=== PATIENT | male | born 1965 | race African-American/Black ===

== ENCOUNTER 2020-07-31 08:45 | Emergency (ER) | payer SELFPAY ==
[~2020-07-31] VITALS: Ht 182.9 cm; Wt 79.0 kg
[2020-07-31] MEDS ORDERED: TRAMADOL 50MG TABLET PO ONE (09:15)
[2020-07-31] MEDS ORDERED: ACETAMINOPHEN 325MG TABLET PO ONE (09:15)
[2020-07-31] MEDS ORDERED: IBUP-2029 MT (10:41)
[2020-07-31 11:06] VITALS: BP 123/77
== END 2020-07-31 11:07 | disposition home or self-care (01) ==
LOC: ER 08:45
DX: M79.10 Myalgia, unspecified site (principal); Z88.0 Allergy status to penicillin; V13.4XXA Pedal cycle driver injured in collision with car, pick-up truck or van in traffic accident, initial encounter; Y93.89 Activity, other specified; Y92.89 Other specified places as the place of occurrence of the external cause
CPT/HCPCS: 72040; 73030; 73080; 73130; 93005; 99284